=== PATIENT | male | born 1985 | race Caucasian/White ===

== ENCOUNTER 2017-04-04 11:17 | Inpatient (IN) | payer OTHER ==
--- NOTE | ~2017-04-04 | A ---
[facility] Nutrition Therapy DATE: 04/07/17 Patient: CABRERA HIRSCH Physician: SENDY Address: [address] [place] [address] Room/Bed: [address] [place] [address], Zip: [place] [address] Admit Date: 04/04/17 Date of : [birth year] Height: 5 11 Weight: 169 76.9 NUTRITIONAL ASSESSMENT: REASON: CONSULT RE: DIET EDUCATION RD ATTEMPTED TO EDUCATE PT BUT PT WAS D/C'D. RD TO REMAIN AVAILABLE UPON REQUEST Respectfully, DELL HAWKINS MS, RD, LD Food and Nutritional Services [facility] cc: client file
--- NOTE | ~2017-04-04 | CT2 ---
[facility] A Service of [facility] RADIOLOGY TEXT RESULTS PATIENT: CABRERA HIRSCH LOCATION: [facility] 556-01 : [birth year] UNIT #: [id number] AGE: [address]: Theresa Waddell MD SEX: M ORDER DR: [id number] [facility] [address] [facility]. [place], [place] [address] [id number] MR#: [id number] Acc #: [id number] NAME: CABRERA HIRSCH : 1985 SEX: M STUDY DATE/TIME: 04/04/2017 16:29 UNIT: CEDOF ROOM: [id number] STUDY DESCRIPTION: CT Abd and Pelv W Cont Attending Physician: Mina Davis M.D. Ordering Physician: Shantel Elmore M.D. Primary Care Physician: No Primary Care Physician MEDICAL IMAGING REPORT This report is preliminary unless electronic signature is present EXAM Abdomen and pelvis CT with contrast. HISTORY Sharp left-sided abdominal pain and tenderness for the past day. TECHNIQUE Axial images were obtained with intravenous contrast. 100 mL of Isovue was used. This CT exam was performed with one or more of the following radiation dose reduction techniques: automatic exposure control, adjustment of mA and/or kV according to patient size, and iterative reconstruction. FINDINGS No upper abdominal solid organ abnormalities are seen. There is no evidence of retroperitoneal adenopathy or ascites. Normal-sized retroperitoneal nodes are seen. There is marked inflammation around the descending colon. There are few bubbles of extraluminal air seen but no extraluminal fluid collection is noted. Findings are consistent with acute diverticulitis and a ruptured diverticulum. Inflammatory stranding extends to involve the superficial surface of the psoas muscle down toward the inguinal region and iliopsoas junction. The appendix is unremarkable. No free fluid is seen in the peritoneal cavity. IMPRESSION Focal mucosal thickening in the descending colon with marked pericolonic inflammatory change consistent with acute diverticulitis. There are a few bubbles of extraluminal air, likely related to a ruptured diverticulum, but there is no evidence of abscess. [facility] A Service of [facility] RADIOLOGY TEXT RESULTS PATIENT: CABRERA HIRSCH LOCATION: C5 556-01 : 85 UNIT #: [id number] AGE: [address]: Theresa Waddell MD SEX: M ORDER DR: Dictated by... Bill Champion M.D. THIS IS AN ELECTRONICALLY VERIFIED REPORT Bill Champion M.D. at 04/09/2017 4:52 PM RLF/scooby TD: 04/05/2017 00:34 JOB #: [id number] MEDICAL IMAGING REPORT Page 1 of 1 COPY
--- NOTE | ~2017-04-04 | DS ---
Unit #: [id number] #: [id number] Patient: CABRERA HIRSCH [id number] [address] [address] [id number] I MR#: [id number] NAME: CABRERA HIRSCH ROOM: [facility] Age: 31 Sex: M Admission Date: 04/04/2017 : 1985 Discharge Date: 04/07/2017 Attending Physician: Theresa Waddell M.D. DISCHARGE SUMMARY DISCHARGE DIAGNOSES 1. Acute descending colon diverticulitis with marked pericolonic inflammatory change on CT scan. 2. Sepsis present on admission. 3. Dehydration. CONSULTATIONS [facility]. PROCEDURES None. DIAGNOSTIC STUDIES LABORATORY: WBC 7.6, hemoglobin 14.7, and platelets 221,000. Blood cultures negative. Creatinine 0.8 and sodium 133. Urine culture is negative. Lactic acid 0.6. IMAGING: CT of the abdomen and pelvis shows focal mucosal thickening in the descending colon with marked pericolonic inflammatory change consistent with acute diverticulitis. ALLERGIES Procaine. DISCHARGE MEDICATIONS 1. Flagyl 500 p.o. 3 times daily for 7 days. 2. Levaquin 500 p.o. daily for 7 days. HOSPITAL COURSE A 31-year-old admitted because of abdominal pain. Acute descending colon diverticulitis with pericolonic inflammation. Patient was seen by [facility]. Patient was given IV Flagyl and Rocephin and currently pain is better. No leukocytosis, no fever. Tolerating diet okay. Patient will be discharged on p.o. antibiotics for seven days. Continue with a diverticular diet. Dietitian to see before discharge. DISPOSITION Discharge home. FOLLOWUP 1. With family physician in one week's time. 2. With Dr. Malave in two week's time. Unit #: [id number] #: [id number] Patient: CABRERA HIRSCH 1. Dictated by... Boyd Muller TD: 04/07/2017 18:20 JOB #: [id number] DISCHARGE SUMMARY Page 1 of 1 X Theresa Waddell MD DISCHARGE SUMMARY
--- NOTE | ~2017-04-04 | HP ---
Unit #: [id number] #: [id number] Patient: CABRERA HIRSCH [id number] [address] [address] [id number] I MR#: [id number] NAME: CABRERA HIRSCH ROOM: [id number] Age: 31 Sex: M Admission Date: 04/04/2017 : 1985 Attending Physician: Sheyla Davis M.D. Primary Care Physician: No Primary Care Physician HISTORY AND PHYSICAL CHIEF COMPLAINT Abdominal pain. HISTORY OF PRESENT ILLNESS The patient is a 31-year-old male with no significant past medical history, brought to the emergency room complaining of the left lower quadrant abdominal pain. The pain is sharp and it started since yesterday morning and has been gradually worsening to the point that he cannot take it anymore. The patient had a CT of the abdomen and pelvis that showed a diverticulitis with rupture and the air bubbles and no abscess and he is being admitted for the above reasons. The patient denies any nausea, vomiting, chills, fever. The patient denies any bleeding per rectum. PAST MEDICAL HISTORY None. PAST SURGICAL HISTORY History of inguinal hernia repair five years ago. HOME MEDICATION None. ALLERGIES Procaine. SOCIAL HISTORY No history of smoking cigarettes or drinking alcohol or any illicit drug abuse. FAMILY HISTORY Reviewed and none. REVIEW OF SYMPTOMS A 14-point review of symptoms performed and only pertinent positive findings as described, remaining are negative. PHYSICAL EXAMINATION GENERAL APPEARANCE: On examination the patient is lying on a bed not in acute distress. VITAL SIGNS: Temperature 98.1, pulse 96, respiratory rate 16, blood pressure 141/89, sating 97% at room air. HEENT: Head atraumatic and normocephalic. Pupils equal, round and reacting to light and accommodation. Extraocular movements are intact. Unit #: [id number] #: [id number] Patient: CABRERA HIRSCH Dry mucous membrane. NECK: Supple. LUNGS: Decreased air entry. HEART: Regular rate and rhythm. ABDOMEN: Soft, positive bowel sounds. Left lower quadrant abdominal tenderness. No rebound. No rigidity. EXTREMITIES: No cyanosis. No clubbing. NEUROLOGIC: Awake, alert and oriented. No gross focal motor deficit. DIAGNOSTIC STUDIES LABORATORY DATA: Sodium 135, potassium 3.9, chloride 98, bicarb 27, glucose 90, BUN 17, creatinine 1, AST 18, ALT 24, alkaline phosphatase 58, WBC 18.7, hemoglobin 16.2, hematocrit 14.5, platelets 222 and UA shows 1+ protein, urine RBCs 225, urine WBCs 5 to 10. IMAGING: CT of the abdomen and pelvis showed diverticulitis of the descending colon with the rupture and the air bubbles and no abscess. ASSESSMENT 1. Diverticulitis rupture. 2. Sepsis. PLAN Plan to admit the patient to the inpatient with the telemetry. Continue with the IV fluids D5NS at 125 mL per hour. Patient will have bowel rest, n.p.o. except ice chips, lactic acid STAT and follow with the sepsis protocol as not done in the ER and LSA consult for the diverticulitis rupture on IV antibiotics with Rocephin and Flagyl and repeat the labs again in the morning and further recommendations will follow. Dictated by Boyd Estes/eagle TD: 04/04/2017 20:31 JOB #: [id number] HISTORY AND PHYSICAL Page 1 of 1 X SHEYLA DAVIS MD X HISTORY AND PHYSICAL
[2017-04-04 13:47] LABS: BASOPHIL% 0.1 % (0-2.5); HEMATOCRIT 48.5 % (38.0-50.0); HEMOGLOBIN 16.2 gm/dL (13.0-16.0); LYMPHOCYTE% 5.3 % (17.0-45.0); MEAN CORPUSCULAR HEMOGLOBIN 29.5 PG (28-34); MEAN CORPUSCULAR HGB CONC 33.5 g/dL (30-36); MEAN PLATELET VOLUME 7.1 FL (6.5-11.5); MONOCYTE# 1.5 X10e3 (0-1.0); MONOCYTE% 8.1 % (3.0-12.0); NEUTROPHIL# 16.2 X10e3 (1.5-7.1); NEUTROPHIL% 86.5 % (40-75); PLATELET COUNT 222 X10e3 (140-420); RED BLOOD COUNT 5.51 X10e (3.90-5.60); RED CELL DISTRIBUTION WIDTH 12.3 % (11.0-15.5); WHITE BLOOD COUNT 18.7 X10e3 (4.0-10.5)
[2017-04-04 13:50] LABS: DIFF IND YES
[2017-04-04 14:07] LABS: ALBUMIN SERUM 4.6 g/dL (3.5-5.0); BILIRUBIN, DIRECT 0.2 mg/dL (0.0-0.2); BILIRUBIN,INDIRECT 1.1 mg/dL (0.0-0.9); BILIRUBIN,TOTAL 1.3 mg/dL (0.2-2.0); CALCIUM SERUM 9.5 mg/dL (8.4-10.2); GLOM FILT RATE Estimated 99.9 mL/min (>60); POTASSIUM 3.9 mmol/L (3.5-5.1); PROTEIN TOTAL SERUM 7.8 g/dL (6.0-8.3)
[2017-04-04 14:12] LABS: PLATELET ESTIMATE NORMAL (NORMAL)
[2017-04-04 16:25] LABS: URINE SOURCE CLEAN CATCH
[2017-04-04 16:30] LABS: URINE APPEARANCE CLEAR; URINE BILIRUBIN NEG (NEG); URINE BLOOD 2+ (NEG); URINE COLOR DK YELLOW; URINE GLUCOSE NEG (NEG); URINE KETONE 3+ (NEG); URINE LEUKOCYTE ESTERASE NEG (NEG); URINE NITRATE NEG (NEG); URINE PH 5.5 (5-8); URINE PROTEIN 1+ (NEG); URINE SPECIFIC GRAVITY 1.039 (1.003-1.035)
[2017-04-04 16:32] LABS: CULTURE INDICATED? YES; URINE BACTERIA AUWI NEG (NEGATIVE); URINE SQUAMOUS EPITHELIAL CELL OCC /[HPF]
[2017-04-04] MEDS ORDERED: NO MEDICATIONS (17:12)
[2017-04-04 19:28] LABS: BASOPHIL% 0.2 % (0-2.5); EOSINOPHIL% 0.1 % (0.0-7.0); HEMATOCRIT 48.1 % (38.0-50.0); HEMOGLOBIN 16.1 gm/dL (13.0-16.0); LYMPHOCYTE# 0.9 X10e3 (1.0-3.5); LYMPHOCYTE% 4.9 % (17.0-45.0); MEAN CELL VOLUME 87.9 FL (83-96); MEAN CORPUSCULAR HEMOGLOBIN 29.5 PG (28-34); MEAN CORPUSCULAR HGB CONC 33.5 g/dL (30-36); MEAN PLATELET VOLUME 6.7 FL (6.5-11.5); MONOCYTE# 1.5 X10e3 (0-1.0); MONOCYTE% 7.9 % (3.0-12.0); NEUTROPHIL# 16.1 X10e3 (1.5-7.1); NEUTROPHIL% 86.9 % (40-75); PLATELET COUNT 201 X10e3 (140-420); RED BLOOD COUNT 5.48 X10e (3.90-5.60); RED CELL DISTRIBUTION WIDTH 12.5 % (11.0-15.5); WHITE BLOOD COUNT 18.5 X10e3 (4.0-10.5)
[2017-04-04 19:29] LABS: DIFF IND YES
[2017-04-04 19:49] LABS: PLATELET ESTIMATE NORMAL (NORMAL)
[2017-04-05 18:54] LABS: BASOPHIL# 0.1 X10e3 (0-0.3); BASOPHIL% 0.6 % (0-2.5); EOSINOPHIL% 0.5 % (0.0-7.0); HEMATOCRIT 43.8 % (38.0-50.0); HEMOGLOBIN 14.7 gm/dL (13.0-16.0); LYMPHOCYTE# 1.3 X10e3 (1.0-3.5); LYMPHOCYTE% 11.9 % (17.0-45.0); MEAN CELL VOLUME 88.8 FL (83-96); MEAN CORPUSCULAR HEMOGLOBIN 29.7 PG (28-34); MEAN CORPUSCULAR HGB CONC 33.5 g/dL (30-36); MEAN PLATELET VOLUME 6.6 FL (6.5-11.5); MONOCYTE# 0.7 X10e3 (0-1.0); MONOCYTE% 6.6 % (3.0-12.0); NEUTROPHIL# 8.8 X10e3 (1.5-7.1); NEUTROPHIL% 80.4 % (40-75); PLATELET COUNT 186 X10e3 (140-420); RED BLOOD COUNT 4.94 X10e (3.90-5.60); RED CELL DISTRIBUTION WIDTH 12.4 % (11.0-15.5); WHITE BLOOD COUNT 10.9 X10e3 (4.0-10.5)
[2017-04-05 19:17] LABS: DIFF IND NO
[2017-04-05 19:42] LABS: BUN/CREATININE RATIO 11.25; CALCIUM SERUM 8.3 mg/dL (8.4-10.2); CREATININE SERUM 0.8 mg/dL (0.6-1.4); GLOM FILT RATE Estimated 119.1 mL/min (>60); POTASSIUM 3.7 mmol/L (3.5-5.1)
[2017-04-06 06:41] LABS: HEMATOCRIT 40.2 % (38.0-50.0); HEMOGLOBIN 13.7 gm/dL (13.0-16.0); MEAN CELL VOLUME 87.8 FL (83-96); MEAN CORPUSCULAR HEMOGLOBIN 29.9 PG (28-34); MEAN CORPUSCULAR HGB CONC 34.1 g/dL (30-36); MEAN PLATELET VOLUME 6.8 FL (6.5-11.5); RED BLOOD COUNT 4.58 X10e (3.90-5.60); RED CELL DISTRIBUTION WIDTH 12.1 % (11.0-15.5); WHITE BLOOD COUNT 7.8 X10e3 (4.0-10.5)
[2017-04-06 07:09] LABS: ALBUMIN SERUM 3.2 g/dL (3.5-5.0); BILIRUBIN,TOTAL 0.6 mg/dL (0.2-2.0); BUN/CREATININE RATIO 7.5; CALCIUM SERUM 8.5 mg/dL (8.4-10.2); CREATININE SERUM 0.8 mg/dL (0.6-1.4); GLOM FILT RATE Estimated 119.1 mL/min (>60); MAGNESIUM 1.9 mg/dL (1.6-3.0); POTASSIUM 3.9 mmol/L (3.5-5.1)
[2017-04-07 07:36] LABS: HEMATOCRIT 44.8 % (38.0-50.0); HEMOGLOBIN 14.7 gm/dL (13.0-16.0); MEAN CORPUSCULAR HEMOGLOBIN 29.2 PG (28-34); MEAN CORPUSCULAR HGB CONC 32.8 g/dL (30-36); RED BLOOD COUNT 5.03 X10e (3.90-5.60); RED CELL DISTRIBUTION WIDTH 12.2 % (11.0-15.5); WHITE BLOOD COUNT 7.6 X10e3 (4.0-10.5)
[2017-04-07] MEDS ORDERED: LEVAQUIN750 MG PO (13:40)
[2017-04-07] MEDS ORDERED: METRONIDAZOLE PO (13:41)
== END 2017-04-07 14:16 | disposition home or self-care (01) | DRG 872 ==
LOC: CED 11:17 → C5B 18:33 → CEDOF 18:33 → C5B 04-05 01:23
PROVIDERS: Internal Medicine; Surgery
DX: A41.9 Sepsis, unspecified organism (principal); K57.32 Diverticulitis of large intestine without perforation or abscess without bleeding; E86.0 Dehydration; Z88.8 Allergy status to other drugs, medicaments and biological substances
CPT/HCPCS: 36415; 74177; 80048; 80053; 80076; 81003; 83605; 83690; 83735; 85025; 85027; 87040; 87086; 94760; 96365; 96375; 99285; J0696; J2543; Q9967